=== PATIENT | male | born 1950 | race Caucasian/White ===

== ENCOUNTER 2017-11-20 14:10 | Observation (INO) | payer MEDICARE ==
[~2017-11-20] VITALS: Ht 152.4 cm; Wt 153.8 kg
[~2017-11-20 14:10] MED LIST changes: -ASPI81TA86 PO; -ATOR20TA22 PO; -LOSA100T67 PO
--- NOTE | 2017-11-20 14:14 | ER Report ---
History and Physical Time Seen By MD: 14:14 HPI/ROS CHIEF COMPLAINT: Dizziness, vomiting, diaphoresis HISTORY OF PRESENT ILLNESS: 66-year-old male patient presents to emergency room with complaint of dizziness, vomiting and diaphoresis. Patient states this started approximately 30 minutes prior to arrival. Patient states that he got to the bathroom and became very dizzy at that time. He states that he made it to the bathroom and when he got there he felt nauseous and vomited. He states that since then he's been feeling incredibly dizzy. He states that he also knows that he was diaphoretic. Patient states he is not taking any medication for this. He denies having any chest pain or any pain at this time. Patient denies having any history of heart disease. He states that he had a normal stress echo done in the not too distant past. REVIEW OF SYSTEMS: Respiratory: No cough, no dyspnea. Cardiovascular: No chest pain, no palpitations. Gastrointestinal: As noted above Musculoskeletal: No back pain. Allergies: Coded Allergies: Sulfa (Sulfonamide Antibiotics) (Verified Allergy, Severe, HIVES, 08/27/15) 1x reaction only to an antibiotic in past, unsure if he has ever taken any other sulfa products since. Home Meds Reported Medications Losartan Potassium (LOSARTAN POTASSIUM) 100 Mg Tablet, 100 MG PO QDAY 11/20/17 Atorvastatin Calcium (LIPITOR) 20 Mg Tablet, 1 TAB PO QDAY, TAB 11/20/17 Cholecalciferol (Vitamin D3) (VITAMIN D) 5,000 Unit Tablet, 5000 UNIT PO QDAY 08/27/15 Multivitamin (MULTI VITAMIN DAILY) 1 Each Tablet, 1 EACH PO 08/27/15 Summit-3 Fatty Acids/Fish Oil (OMEGA 3 1,000 MG SOFTGEL) 1 Each Capsule, 1 EACH PO QDAY, CAPSULE 08/27/15 Metformin Hcl (METFORMIN HCL) 500 Mg Tablet, 1 TAB PO BID, TAB 08/27/15 Allopurinol (Zyloprim) 300 Mg Tab, 300 MG PO QDAY 12/17/06 Hydrochlorothiazide (Hydrochlorothiazide) 25 Mg Tab, 25 MG PO QDAY 12/17/06 Verapamil Hcl (Isoptin Sr (Or Equiv)) 180 Mg Tabcr, 180 MG PO DAILY 12/17/06 Discontinued Reported Medications Lisinopril (LISINOPRIL) 20 Mg Tablet, 20 MG PO QDAY, TAB 2/1/16 Past Medical/Surgical History Patient has a past medical history of loss of sensory nerves below waist, hypertension, continuous oxygen use, neurogenic bladder, 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 Patient has surgical history of orbital reconstruction, back surgery, carpal tunnel release, appendectomy. Reviewed Nurses Notes: Yes Hx Smoking: Yes (CIGARS 2/WEEK) Smoking Status: Former Smoker Hx Alcohol Use: Yes Constitutional Vital Sign - Last 24 Hours 11/20/17 11/20/17 11/20/17 11/20/17 14:10 14:15 14:16 14:20 Temp 98.2 Pulse ??? 54 54 Resp 20 19 B/P (MAP) 150/80 150/80 (103) Pulse Ox 92 95 O2 Delivery Room Air 11/20/17 11/20/17 11/20/17 11/20/17 14:30 14:45 14:50 14:56 Pulse 53 68 Resp 12 15 B/P (MAP) 133/70 (91) 131/85 (100) Pulse Ox 96 95 O2 Flow Rate 3.0 11/20/17 11/20/17 11/20/17 11/20/17 15:00 15:01 15:15 15:21 Pulse 57 56 53 Resp 22 25 7 B/P (MAP) 130/83 (99) Pulse Ox 94 95 95 11/20/17 11/20/17 11/20/17 11/20/17 15:30 15:36 15:45 15:51 Pulse ? B/P (MAP) 125/75 (92) ???/??? (1665) 11/20/17 11/20/17 11/20/17 11/20/17 16:00 16:06 16:11 16:15 Pulse 52 54 Resp 21 21 B/P (MAP) 153/88 (109) 154/87 (109) Pulse Ox 96 96 11/20/17 11/20/17 11/20/17 11/20/17 16:30 16:41 16:45 16:56 Pulse 55 57 Resp 20 23 B/P (MAP) 157/88 (111) 151/94 (113) Pulse Ox 94 95 11/20/17 11/20/17 11/20/17 11/20/17 17:00 17:11 17:15 17:26 Pulse 49 52 Resp 24 23 B/P (MAP) 150/88 (108) 158/90 (112) Pulse Ox 95 11/20/17 11/20/17 11/20/17 11/20/17 17:30 17:35 17:45 17:50 Pulse 52 50 Resp 23 24 B/P (MAP) 147/88 (107) 156/89 (111) 11/20/17 11/20/17 11/20/17 11/20/17 18:00 18:05 18:15 18:20 Pulse 51 58 Resp 21 19 B/P (MAP) 154/87 (109) 172/92 (118) Pulse Ox 94 94 11/20/17 11/20/17 11/20/17 11/20/17 18:30 18:35 18:45 18:50 Pulse 55 50 Resp 12 20 B/P (MAP) 164/89 (114) 169/97 (121) Pulse Ox 90 11/20/17 11/20/17 11/20/17 11/20/17 19:00 19:05 19:15 19:20 Pulse 54 54 Resp 22 19 B/P (MAP) 160/87 (111) 157/88 (111) Pulse Ox 94 94 Physical Exam General Appearance: The patient is alert, has no immediate need for airway protection and no current signs of toxicity. Patient is diaphoretic. Eyes: Pupils equal and round no injection. Extra ocular movements intact. Respiratory: Chest is non tender, lungs are clear to auscultation. Cardiac: regular rate and rhythm Gastrointestinal: Abdomen is soft and non tender, no masses, bowel sounds normal. Musculoskeletal: Neck: Neck is supple and non tender. Extremities have full range of motion and are non tender. Skin: No rashes or lesions. Neuro: Patient is alert and oriented 4, patient had increased dizziness with head turned to right and left doing [place]-Hallpike maneuver. Dizziness was improved looking straight ahead. DIFFERENTIAL DIAGNOSIS: After history and physical exam differential diagnosis was considered for CT, vertigo, dehydration, labyrinthitis, gastroenteritis. Medical Decision Making Data Points Result Diagram: 11/20/17 1405 11/20/17 1405 Laboratory Hematology Test 11/20/17 14:05 11/20/17 17:33 11/20/17 19:45 Red Blood Count 5.02 M/uL (4.00-5.60) Mean Corpuscular Volume 87.0 fL (80.0-96.0) Mean Corpuscular Hemoglobin 29.4 pg (26.0-33.0) Mean Corpuscular Hemoglobin Concent 33.8 g/dL (32.0-36.0) Red Cell Distribution Width 14.1 % (11.5-14.5) Mean Platelet Volume 8.6 fL (7.2-11.1) Neutrophils (%) (Auto) 62.7 % (39.4-72.5) Lymphocytes (%) (Auto) 23.0 % (17.6-49.6) Monocytes (%) (Auto) 9.7 % (4.1-12.4) Eosinophils (%) (Auto) 3.7 % (0.4-6.7) Basophils (%) (Auto) 0.9 % (0.3-1.4) Nucleated RBC Relative Count (auto) 0.1 /100WBC Neutrophils # (Auto) 8.9 K/uL (2.0-7.4) Lymphocytes # (Auto) 3.2 K/uL (1.3-3.6) Monocytes # (Auto) 1.4 K/uL (0.3-1.0) Eosinophils # (Auto) 0.5 K/uL (0.0-0.5) Basophils # (Auto) 0.1 K/uL (0.0-0.1) Nucleated RBC Absolute Count (auto) 0.01 K/uL Sodium Level 135 mmol/L (137-145) Potassium Level 3.1 mmol/L (3.5-5.0) Chloride Level 93 mmol/L (98-107) Carbon Dioxide Level 27 mmol/L (22-30) Blood Urea Nitrogen 15 mg/dl (9-21) Creatinine 0.70 mg/dl (0.66-1.25) Glomerular Filtration Rate Calc > 60.0 Random Glucose 194 mg/dl (75-110) Calcium Level 9.8 mg/dl (8.4-10.2) Total Bilirubin 0.3 mg/dl (0.2-1.3) Aspartate Amino Transf (AST/SGOT) 38 U/L (0-35) Alanine Aminotransferase (ALT/SGPT) 53 U/L (0-56) Alkaline Phosphatase 59 U/L (0-126) Total Protein 7.5 gm/dl (6.3-8.2) Albumin 4.1 g/dl (3.5-5.0) Troponin I < 0.012 ng/ml Urine Color Yellow Urine Clarity Clear Urine pH 5.0 pH (4.8-9.5) Urine Specific [place] >1.060 Urine Protein Negative mg/dL (NEGATIVE) Urine Glucose (UA) Negative mg/dL (NEGATIVE) Urine Ketones Trace mg/dL (NEGATIVE) Urine Blood Negative (NEGATIVE) Urine Nitrite Negative (NEGATIVE) Urine Bilirubin Negative (NEGATIVE) Urine Urobilinogen Negative mg/dL (0.2-1.9) Urine Leukocyte Esterase Trace (NEGATIVE) Urine RBC <1 /HPF (0-2/HPF) Urine WBC 1 /HPF (0-5/HPF) Urine Squamous Epithelial Cells Many /LPF (</=FEW) Urine Bacteria Negative /HPF (NONE-FEW) Urine Mucus None /HPF (NONE-FEW) Chemistry Test 11/20/17 14:05 11/20/17 17:33 11/20/17 19:45 White Blood Count 14.1 k/uL (4.5-11.0) Red Blood Count 5.02 M/uL (4.00-5.60) Hemoglobin 14.7 g/dL (14.0-18.0) Hematocrit 43.7 % (42.0-52.0) Mean Corpuscular Volume 87.0 fL (80.0-96.0) Mean Corpuscular Hemoglobin 29.4 pg (26.0-33.0) Mean Corpuscular Hemoglobin Concent 33.8 g/dL (32.0-36.0) Red Cell Distribution Width 14.1 % (11.5-14.5) Platelet Count 291 K/uL (150-450) Mean Platelet Volume 8.6 fL (7.2-11.1) Neutrophils (%) (Auto) 62.7 % (39.4-72.5) Lymphocytes (%) (Auto) 23.0 % (17.6-49.6) Monocytes (%) (Auto) 9.7 % (4.1-12.4) Eosinophils (%) (Auto) 3.7 % (0.4-6.7) Basophils (%) (Auto) 0.9 % (0.3-1.4) Nucleated RBC Relative Count (auto) 0.1 /100WBC Neutrophils # (Auto) 8.9 K/uL (2.0-7.4) Lymphocytes # (Auto) 3.2 K/uL (1.3-3.6) Monocytes # (Auto) 1.4 K/uL (0.3-1.0) Eosinophils # (Auto) 0.5 K/uL (0.0-0.5) Basophils # (Auto) 0.1 K/uL (0.0-0.1) Nucleated RBC Absolute Count (auto) 0.01 K/uL Glomerular Filtration Rate Calc > 60.0 Calcium Level 9.8 mg/dl (8.4-10.2) Total Bilirubin 0.3 mg/dl (0.2-1.3) Aspartate Amino Transf (AST/SGOT) 38 U/L (0-35) Alanine Aminotransferase (ALT/SGPT) 53 U/L (0-56) Alkaline Phosphatase 59 U/L (0-126) Total Protein 7.5 gm/dl (6.3-8.2) Albumin 4.1 g/dl (3.5-5.0) Troponin I < 0.012 ng/ml Urine Color Yellow Urine Clarity Clear Urine pH 5.0 pH (4.8-9.5) Urine Specific [place] >1.060 Urine Protein Negative mg/dL (NEGATIVE) Urine Glucose (UA) Negative mg/dL (NEGATIVE) Urine Ketones Trace mg/dL (NEGATIVE) Urine Blood Negative (NEGATIVE) Urine Nitrite Negative (NEGATIVE) Urine Bilirubin Negative (NEGATIVE) Urine Urobilinogen Negative mg/dL (0.2-1.9) Urine Leukocyte Esterase Trace (NEGATIVE) Urine RBC <1 /HPF (0-2/HPF) Urine WBC 1 /HPF (0-5/HPF) Urine Squamous Epithelial Cells Many /LPF (</=FEW) Urine Bacteria Negative /HPF (NONE-FEW) Urine Mucus None /HPF (NONE-FEW) Urinalysis Test 11/20/17 19:45 Urine Color Yellow Urine Clarity Clear Urine pH 5.0 pH (4.8-9.5) Urine Specific [place] >1.060 Urine Protein Negative mg/dL (NEGATIVE) Urine Glucose (UA) Negative mg/dL (NEGATIVE) Urine Ketones Trace mg/dL (NEGATIVE) Urine Blood Negative (NEGATIVE) Urine Nitrite Negative (NEGATIVE) Urine Bilirubin Negative (NEGATIVE) Urine Urobilinogen Negative mg/dL (0.2-1.9) Urine Leukocyte Esterase Trace (NEGATIVE) Urine RBC <1 /HPF (0-2/HPF) Urine WBC 1 /HPF (0-5/HPF) Urine Squamous Epithelial Cells Many /LPF (</=FEW) Urine Bacteria Negative /HPF (NONE-FEW) Urine Mucus None /HPF (NONE-FEW) EKG/Imaging EKG Interpretation 12 lead EKG done at 1424: Rhythm: Sinus bradycardia with a ventricular rate of 57 bpm Walls: Left axis deviation QRS: Poor R-wave progression through V1 through V3 ST segments: normal 12 lead EKG done at 1514: Rhythm: Sinus bradycardia with when she rate of 52 bpm Walls: Left axis deviation QRS: Poor R-wave progression through V1 through V3 ST segments: normal EKG unchanged from previous EKG done at 1424 Imaging EXAMINATION: Portable chest radiograph single view at 2:20 PM HISTORY: Chest pain. COMPARISON: Chest CT from 04/24/2017. FINDINGS: A single portable AP view of the chest is obtained. Lines/tubes: None. Lungs/pleura: The lungs are hypoexpanded with bronchovascular crowding. There are streaky opacities at the lung bases. No evidence of pleural effusion or pneumothorax. Heart: Negative. Mediastinum: Negative. Bony structures/body wall: Negative. IMPRESSION: Hypoexpanded lungs with bibasilar subsegmental atelectasis. Report Dictated By: Claus Mars MD at 11/20/2017 3:29 PM Report E-Signed By: Claus Mars MD at 11/20/2017 3:33 PM ADDENDUM #1 The orbits show question of mild proptosis seen on both sides without focal abnormality. There is no radiopaque foreign body. Report Dictated By: Te Canales at 11/20/2017 7:19 PM Report E-Signed By: Te Canales at 11/20/2017 7:[address] Head without contrast Indication: Dizziness. Comparison: None available Technique: Axial CT images were obtained through the brain from the skull base to the vertex without administration of IV contrast. Reformatted coronal and sagittal images were also obtained. One of the following dose optimization techniques was utilized in the performance of this exam: automated exposure control; adjustment of the mA and/ or kV according to the patient's size; or use of an iterative reconstruction technique. Specific details can be referenced in the facility's radiology CT exam operational policy. Findings: No evidence of mass, mass effect, or midline shift. No acute intracranial hemorrhage or acute territorial infarction. No extra-axial fluid collection or hydrocephalus. Mild age-related cerebral atrophy. Mild periventricular white matter ischemic changes consistent small vessel disease. Yeager/white matter differentiation appears normal. Mild bilateral internal carotid artery calcifications. Bony structures show no fractures or lesions. Mild leftward deviation nasal septum. There is very mild mucosal thickening seen in the inferior aspect of both maxillary sinuses. The remaining sinuses and mastoids visualized are clear. IMPRESSION: 1. Senescent changes without acute abnormality. 2. Minimal bilateral maxillary sinus disease. Report Dictated By: Te Canales at 11/20/2017 4:36 PM Report E-Signed By: Te Canales at 11/20/2017 4:40 PM COMPUTED TOMOGRAPHY OF THE CHEST, ABDOMEN, AND PELVIS with CONTRAST DATE OF EXAM: 11/20/2017. INDICATION: . dizziness, wide mediastinum on chest xray. . TECHNIQUE: Contiguous axial CT images were obtained through the chest, abdomen, and pelvis after 125 cc [id number]. Coronal and sagittal reformatted images were submitted. COMPARISON: Chest radiograph of the same day. FINDINGS: Thyroid: The thyroid is incompletely imaged. Thoracic inlet: No thoracic inlet adenopathy. Heart and great vessels: Heart size is normal. Coronary atherosclerosis is prominent in the LAD but blurred by motion. There is also RCA atherosclerosis. A moderate volume of fat surrounds the heart. Mediastinum and shakeel: No adenopathy. Lungs and pleura: The lungs are blurred by motion. There is no effusion, consolidation, or pneumothorax. Scattered atelectasis. Breast and axilla: Breast tissue is incompletely imaged. Liver and hepatic vasculature: Imaging is degraded by body habitus. There is no apparent focal liver lesion. No ascites. Gallbladder and bile ducts: Normal Spleen: Normal Pancreas: Normal Adrenals: Normal Kidneys, ureters and bladder: Simple appearing right renal cyst. No hydronephrosis or collecting system obstruction. Normal-appearing bladder. Retroperitoneum and aorta: Scattered aortic atherosclerosis. GI tract, mesentery and peritoneum: No bowel obstruction. No free fluid or free air. No findings of diverticulitis. Prostate: Unremarkable. Bones and soft tissues: Large osteophytes at multiple thoracolumbar levels. There has been posterior decompression at L4 and L3 with excision of the spinous processes at both levels and laminectomy at L4. IMPRESSION: 1. The apparent widening of the mediastinum on prior radiographs is likely due to fat surrounding the heart, the technique, and hypoinflation. Heart size is normal. Normal course and caliber of the great vessels. 2. Chronic findings as above. One of the following dose optimization techniques was utilized in the performance of this exam: Automated exposure control; adjustment of the mA and/ or kV according to the patient's size; or use of an iterative reconstruction technique. Specific details can be referenced in the facility's radiology CT exam operational policy. Report Dictated By: Glory Novak MD at 11/20/2017 4:53 PM Report E-Signed By: Glory Novak MD at 11/20/2017 5:13 PM ED Course/Re-evaluation ED Course Patient was admitted to exam room, history and physical were obtained. Differential diagnoses were considered. On examination patient is diaphoretic, heart is regular, patient is nauseated and vomited 1. Patient received 4 mg of Zofran in route to the emergency room, he also received a dose of Zofran here in the emergency room. An IV was started, CBC, CMP, troponin, EKG were done. EKG showed a sinus bradycardia with poor R-wave progression in leads V1 through V3. CBC showed a white count of 14,000, there was no left shift. I believe this is likely secondary to demargination from the vomiting. A CMP showed a low potassium of 3.1, low sodium of 135. A chest x-ray was done which appeared to show a widened mediastinum, a CT scan of head was done. As the patient was wheeled down for the CT scan of the head as well as noticed the widened mediastinum, I ordered a CT of the chest abdomen pelvis. As a side note the radiologist did read the chest x-ray as no acute cardiac processes although there is poor expiratory effort. The CT scan of the head, chest abdomen pelvis showed no acute findings. I did get a repeat troponin. That was also negative. At that time I discussed the case with Dr. Grissom, hospitalist. He did come down and evaluate the patient. He requested that an MRI be done. An MRI was ordered and patient was taken over to have it, however he was too large to fit into the MRI tube. I discussed this with Dr. Grissom, we discussed about transferring so he can get an MRI. Dr. Forrest didn't feel that was necessary at this time but stated that we will go ahead and admit the patient and treat the symptoms. I discussed this with patient and his and they verbalized understanding and agreement with plan. Decision to Disposition Date: Nov 20, 2017 Decision to Disposition Time: 20:08 Depart Departure Latest Vital Signs Vital Signs Date Time Temp Pulse Resp B/P (MAP) Pulse Ox O2 Delivery O2 Flow Rate FiO2 11/20/17 19:20 54 19 94 11/20/17 19:15 157/88 (111) 11/20/17 14:56 3.0 11/20/17 14:15 98.2 Room Air Impression: Primary Impression: Dizziness Additional Impressions: Vomiting Diabetes Condition: Condition Unchanged Disposition: Admitted from ER Referrals: NATHAN MITCHELL (PCP) Problem Qualifiers Additional Impressions: Vomiting Vomiting type: unspecified Vomiting Intractability: non-intractable Nausea presence: with nausea Qualified Codes: R11.2 - Nausea with vomiting, unspecified Diabetes Diabetes mellitus type: type 2 Diabetes mellitus terminal supervisor insulin use: unspecified halfway insulin use status Diabetes mellitus complication status : without complication Qualified Codes: E11.9 - Type 2 diabetes mellitus without complications JOSE FERRARO Nov 20, 2017 14:14
[2017-11-20] MEDS ORDERED: ASPIRIN 81 MG CHEW PO ONE (14:20)
[2017-11-20] MEDS ORDERED: NS(*) 0.9% 1000 ML BAG 1,000 ML IV ONE (14:20)
[2017-11-20] MEDS ORDERED: ONDANSETRON 4 MG/2 ML VIAL IVP ONE (14:25)
[2017-11-20 14:30] LABS: PLATELET COUNT, AUTOMATED 291 K/uL (150-450)
--- NOTE | 2017-11-20 14:32 | EKG ---
FACILITY: [facility] PATIENT NAME: GONZALO PALOMO : [id number] MR: [id number] V: [id number] EXAM DATE: ORDERING PHYSICIAN: JOSE FERRARO TECHNOLOGIST: CARSON Test Reason : BRADYCARDIA, DIAPHORESIS Blood Pressure : / mmHG Vent. Rate : 057 BPM Atrial Rate : 057 BPM P-R Int : 226 ms QRS Dur : 108 ms QT Int : 436 ms P-R-T Axes : 041 -50 014 degrees QTc Int : 424 ms Poor data quality, interpretation may be adversely affected Sinus bradycardia with 1st degree AV block Left anterior fascicular block Anteroseptal infarct , age undetermined Diffuse, non-specific T flattening No previous ECGs available Confirmed by BLU JONES ([id number]) on 11/20/2017 7:07:59 PM Referred By: JASMINE Confirmed By:BLU JONES
[2017-11-20] MEDS ORDERED: DIAZEPAM 50 MG/10 ML MDV IVP ONE (14:35)
[2017-11-20] MEDS ORDERED: ATOR20TA22 PO (15:01)
[2017-11-20] MEDS ORDERED: LOSA100T67 PO (15:01)
[2017-11-20] MEDS ORDERED: PROMETHAZINE 25 MG/ML 1 ML AMP IVP ONE ×2 (15:15→16:20)
--- NOTE | 2017-11-20 15:24 | EKG ---
FACILITY: [facility] PATIENT NAME: GONZALO PALOMO : [id number] MR: [id number] V: [id number] EXAM DATE: ORDERING PHYSICIAN: JOSE FERRARO TECHNOLOGIST: CARSON Test Reason : SYNCOPE Blood Pressure : / mmHG Vent. Rate : 052 BPM Atrial Rate : 052 BPM P-R Int : 238 ms QRS Dur : 104 ms QT Int : 464 ms P-R-T Axes : 015 -43 020 degrees QTc Int : 431 ms Sinus bradycardia with 1st degree AV block Left axis deviation Anteroseptal infarct (cited on or before 20-NOV-2017) Diffuse, non-specific T flattening When compared with ECG of previous Unchanged Confirmed by BLU JONES ([id number]) on 11/20/2017 7:09:18 PM Referred By: JASMINE Confirmed By:BLU JONES
--- NOTE | 2017-11-20 15:38 | RADIOLOGY IMAGING REPORT ---
FACILITY: [facility] [place] PATIENT NAME: William Hernandez : 1950 MR: [id number] V: [id number] EXAM DATE: ORDERING PHYSICIAN: JOSE FERRARO TECHNOLOGIST: Location: [facility] [place] Patient: William Hernandez : 1950 Visit/Account:[id number] Date of Sevice: 11/20/2017 EXAMINATION: Portable chest radiograph single view at 2:20 PM HISTORY: Chest pain. COMPARISON: Chest CT from 04/24/2017. FINDINGS: A single portable AP view of the chest is obtained. Lines/tubes: None. Lungs/pleura: The lungs are hypoexpanded with bronchovascular crowding. There are streaky opacities at the lung bases. No evidence of pleural effusion or pneumothorax. Heart: Negative. Mediastinum: Negative. Bony structures/body wall: Negative. IMPRESSION: Hypoexpanded lungs with bibasilar subsegmental atelectasis. Report Dictated By: Claus Mars MD at 11/20/2017 3:29 PM Report E-Signed By: Claus Mars MD at 11/20/2017 3:33 PM WSN:[id number]
[2017-11-20] MEDS ORDERED: IOPAMIDOL 76% 150 ML INFUS BTL 150 ML ONE (15:47)
--- NOTE | 2017-11-20 16:45 | RADIOLOGY IMAGING REPORT ---
FACILITY: [facility] PATIENT NAME: William Hernandez : 1950 MR: [id number] V: [id number] EXAM DATE: ORDERING PHYSICIAN: JOSE FERRARO TECHNOLOGIST: Location: [facility] Patient: William Hernandez : 1950 Visit/Account:[id number] Date of Sevice: 11/20/2017 ADDENDUM #1 The orbits show question of mild proptosis seen on both sides without focal abnormality. There is no radiopaque foreign body. Report Dictated By: Te Canales at 11/20/2017 7:19 PM Report E-Signed By: Te Canales at 11/20/2017 7:[address] Head without contrast Indication: Dizziness. Comparison: None available Technique: Axial CT images were obtained through the brain from the skull base to the vertex without administration of IV contrast. Reformatted coronal and sagittal images were also obtained. One of the following dose optimization techniques was utilized in the performance of this exam: autom ated exposure control; adjustment of the mA and/or kV according to the patient's size; or use of an i terative reconstruction technique. Specific details can be referenced in the facility's radiology CT exam operational policy. Findings: No evidence of mass, mass effect, or midline shift. No acute intracranial hemorrhage or acute territorial infarction. No extra-axial fluid collection or hydrocephalus. Mild age-related cerebral atrophy. Mild periventric ular white matter ischemic changes consistent small vessel disease. Yeager/white matter differentiation appears normal. Mild bilateral internal carotid artery calcifications. Bony structures show no fractures or lesions. Mild leftward deviation nasal septum. There is very mild mucosal thickening seen in the inferior aspect of both maxillary sinuses. The liv ining sinuses and mastoids visualized are clear. IMPRESSION: 1. Senescent changes without acute abnormality. 2. Minimal bilateral maxillary sinus disease. Report Dictated By: Te Canales at 11/20/2017 4:36 PM Report E-Signed By: Te Canales at 11/20/2017 4:40 PM WSN:[id number]
--- NOTE | 2017-11-20 17:17 | RADIOLOGY IMAGING REPORT ---
FACILITY: [facility] PATIENT NAME: William Hernandez : 1950 MR: [id number] V: [id number] EXAM DATE: [id number] ORDERING PHYSICIAN: JOSE FERRARO TECHNOLOGIST: Location: [facility] Patient: William Hernandez : 1950 Visit/Account:[id number] Date of Sevice: 11/20/2017 COMPUTED TOMOGRAPHY OF THE CHEST, ABDOMEN, AND PELVIS with CONTRAST DATE OF EXAM: 11/20/2017. INDICATION: . dizziness, wide mediastinum on chest xray. . TECHNIQUE: Contiguous axial CT images were obtained through the chest, abdomen, and pelvis after 125 cc Isovue-370. Coronal and sagittal reformatted images were submitted. COMPARISON: Chest radiograph of the same day. FINDINGS: Thyroid: The thyroid is incompletely imaged. Thoracic inlet: No thoracic inlet adenopathy. Heart and great vessels: Heart size is normal. Coronary atherosclerosis is prominent in the LAD but blurred by motion. There is also RCA atherosclerosis. A moderate volume of fat surrounds the heart. Mediastinum and shakeel: No adenopathy. Lungs and pleura: The lungs are blurred by motion. There is no effusion, consolidation, or pneumotho rax. Scattered atelectasis. Breast and axilla: Breast tissue is incompletely imaged. Liver and hepatic vasculature: Imaging is degraded by body habitus. There is no apparent focal liver lesion. No ascites. Gallbladder and bile ducts: Normal Spleen: Normal Pancreas: Normal Adrenals: Normal Kidneys, ureters and bladder: Simple appearing right renal cyst. No hydronephrosis or collecting sys tem obstruction. Normal-appearing bladder. Retroperitoneum and aorta: Scattered aortic atherosclerosis. GI tract, mesentery and peritoneum: No bowel obstruction. No free fluid or free air. No findings of d iverticulitis. Prostate: Unremarkable. Bones and soft tissues: Large osteophytes at multiple thoracolumbar levels. There has been posterior decompression at L4 and L3 with excision of the spinous processes at both levels and laminectomy at L 4. IMPRESSION: 1. The apparent widening of the mediastinum on prior radiographs is likely due to fat surrounding the heart, the technique, and hypoinflation. Heart size is normal. Normal course and caliber of the grea t vessels. 2. Chronic findings as above. One of the following dose optimization techniques was utilized in the performance of this exam: Autom ated exposure control; adjustment of the mA and/or kV according to the patient's size; or use of an i terative reconstruction technique. Specific details can be referenced in the facility's radiology C T exam operational policy. Report Dictated By: Glory Novak MD at 11/20/2017 4:53 PM Report E-Signed By: Glory Novak MD at 11/20/2017 5:13 PM WSN:[id number]
[2017-11-20] MEDS ORDERED: METOCLOPRAMIDE 10 MG/2 ML SDV IVP ONE (19:30)
[2017-11-20] MEDS ORDERED: PROMETHAZINE 25 MG/ML 1 ML AMP IVP PRN ×2 (20:15→20:35)
[2017-11-20 20:32] VITALS: BP 142/85
[2017-11-20] MEDS ORDERED: ONDANSETRON 4 MG/2 ML VIAL IVP PRN (20:35)
--- NOTE | 2017-11-20 20:43 | RADIOLOGY IMAGING REPORT ---
FACILITY: [facility] PATIENT NAME: William Hernandez : 1950 MR: [id number] V: [id number] EXAM DATE: ORDERING PHYSICIAN: JOSE FERRARO TECHNOLOGIST: Location: [facility] Patient: William Hernandez : 1950 Visit/Account:[id number] Date of Sevice: 11/20/2017 BRAIN W/O CONTRAST HISTORY: Dizziness. FINDINGS: Examination could not be performed as patient did not fit into the MRI scanner. Report Dictated By: Carolee Varela at 11/20/2017 8:37 PM Report E-Signed By: Carolee Varela at 11/20/2017 8:39 PM WSN:[id number]
--- NOTE | 2017-11-20 20:53 | History & Physical ---
History of Present Illness History of Present Illness 66yo male with T2DM, HTN, and hyperlipidemia who came to the ER for dizziness. He was in his normal state of health until about 1:45pm. He had been up walking for about 2 minutes, making his way to the bathroom, when he suddenly developed dizziness. He denies vertigo or tunnel vision symptoms. It felt like he "was moving". He became very sweaty. Moving his head makes it worse. He hasn't had headache, fevers, chills, cp, sob, facial droop, new focal weakness. He did have a loose stool right after the dizziness started. In the ER, he received ASA, Zofran, Valium, Reglan, and Phenergan x2. 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 (6) History of back surgery (7) History of appendectomy Home Meds Reported Medications Losartan Potassium (LOSARTAN POTASSIUM) 100 Mg Tablet, 100 MG PO QDAY 11/20/17 Atorvastatin Calcium (LIPITOR) 20 Mg Tablet, 1 TAB PO QDAY, TAB 11/20/17 Cholecalciferol (Vitamin D3) (VITAMIN D) 5,000 Unit Tablet, 5000 UNIT PO QDAY 08/27/15 Multivitamin (MULTI VITAMIN DAILY) 1 Each Tablet, 1 EACH PO 08/27/15 Dexter-3 Fatty Acids/Fish Oil (OMEGA 3 1,000 MG SOFTGEL) 1 Each Capsule, 1 EACH PO QDAY, CAPSULE 08/27/15 Metformin Hcl (METFORMIN HCL) 500 Mg Tablet, 1 TAB PO BID, TAB 08/27/15 Allopurinol (Zyloprim) 300 Mg Tab, 300 MG PO QDAY 12/17/06 Hydrochlorothiazide (Hydrochlorothiazide) 25 Mg Tab, 25 MG PO QDAY 12/17/06 Verapamil Hcl (Isoptin Sr (Or Equiv)) 180 Mg Tabcr, 180 MG PO DAILY 12/17/06 Discontinued Reported Medications Lisinopril (LISINOPRIL) 20 Mg Tablet, 20 MG PO QDAY, TAB 08/27/15 Allergies: Coded Allergies: Sulfa (Sulfonamide Antibiotics) (Verified Allergy, Severe, HIVES, 08/27/15) 1x reaction only to an antibiotic in past, unsure if he has ever taken any other sulfa products since. Other Social/Family Hx no tobacco. He lives with his . He drinks 3-4 drinks a few times a week. Hx Smoking: Yes (CIGARS 2/WEEK) Smoking Status: Former Smoker Caffeine Intake: Coffee, Tea, Soda Caffeine/Cups Per Day: 36 oz per day Hx Alcohol Use: Yes (2-3X WEEK) Hx Substance Use Disorder: No Review of Systems All Systems Reviewed/Normal: Yes, Except as Noted Exam Vital Signs Vital Signs Date Time Temp Pulse Resp B/P (MAP) Pulse Ox O2 Delivery O2 Flow Rate FiO2 11/20/17 19:20 54 19 94 11/20/17 19:15 157/88 (111) 11/20/17 14:56 3.0 11/20/17 14:15 98.2 Room Air General Appearance: No Acute Distress, Other (breathing comfortably. ) Neuro: No Gross deficits (CN 2-12 intact. Normal strength in UE bilaterally. He is able to flex his hips against light resistance bilaterally. He chroncially cannot dorsiflex/plantar flex) Eyes: PERRLA ENT: Moist Mucous Membranes, Posterior Pharynx Clear Cardiovascular: Regular Rate and Rhythm (2/6 systolic murmur across the precordium) Respiratory: Clear to Auscultation GI: Abd Soft and Non-Tender Extremities: Warm, Perfused Integumentary: No Jaundice, No Cyanosis Medical Decision Making Data Points Result Diagram: 11/20/17140411/20/171404 Item Value Date Time Urine Leukocyte Esterase Trace H 11/20/171944 Urine RBC <1 /HPF 11/20/171944 Urine WBC 1 /HPF 11/20/171944 Urine Squamous Epithelial Cells Many /LPF H 11/20/171944 Urine Bacteria Negative /HPF 11/20/171944 Urine Ketones Trace mg/dL 11/20/171944 Neutrophils (%) (Auto) 62.7 % 11/20/171404 Lymphocytes (%) (Auto) 23.0 % 11/20/171404 Monocytes (%) (Auto) 9.7 % 11/20/171404 Eosinophils (%) (Auto) 3.7 % 11/20/171404 Basophils (%) (Auto) 0.9 % 4/27/18 1405 Troponin I < 0.012 ng/ml 11/20/17 1733 Troponin I < 0.012 ng/ml 11/20/17 1405 Total Bilirubin 0.3 mg/dl 11/20/17 1405 Aspartate Amino Transf (AST/SGOT) 38 U/L H 11/20/17 1405 Alanine Aminotransferase (ALT/SGPT) 53 U/L 11/20/17 1405 Alkaline Phosphatase 59 U/L 11/20/17 1405 EKG / Imaging EKG Interpretation Vent. Rate : 052 BPM Atrial Rate : 052 BPM P-R Int : 238 ms QRS Dur : 104 ms QT Int : 464 ms P-R-T Axes : 015 -43 020 degrees QTc Int : 431 ms Sinus bradycardia with 1st degree AV block Left axis deviation Anteroseptal infarct (cited on or before 20-NOV-2017) Diffuse, non-specific T flattening When compared with ECG of previous Unchanged Confirmed by BLU JONES ([id number]) on 11/20/2017 7:09:18 PM Imaging Chest/Abd/Pelvis CT - 1. The apparent widening of the mediastinum on prior radiographs is likely due to fat surrounding the heart, the technique, and hypoinflation. Heart size is normal. Normal course and caliber of the great vessels. 2. Chronic findings as above. Head CT - 1. Senescent changes without acute abnormality. 2. Minimal bilateral maxillary sinus disease. CXR - Hypoexpanded lungs with bibasilar subsegmental atelectasis. Assessment and Plan Problems: (1) Dizziness Status: Acute Assessment & Plan: He presented with sudden onset of the sensation of moving and nausea at about 1:45pm. The symptoms have persisted and are exacerbated by moving his head. He was unable to fit in the MRI. Hallpike test creates symptoms on both sides and reportedly there was no nystagmus. He is more than 4.5 hours out from the onset of the symptoms, so will watch him in the hospital , check carotid Dopplers and an echo. He has received ASA and will continue. If his symptoms, are not improving, then he might need to get an MRI at another facility and/or be under the care of a Neurologist. (2) Vomiting Status: Acute Assessment & Plan: Secondary to above. Will hydrate and give Zofran/Phenergan prn. (3) T2DM (type 2 diabetes mellitus) Status: Chronic Assessment & Plan: Hold metformin secondary to contrast. AC and HS glucose with SSI level 2 to cover. (4) HTN (hypertension) Status: Chronic Assessment & Plan: Continue HCTZ, Losartan, and Verapamil with parameters. (5) Hyperlipemia Status: Chronic Assessment & Plan: Continue chronic atorvastatin. 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 Copies to: [employer] Venous Thromboembolism Antithrombotics Is Pt On Any Antithrombotics?: No Exam Sepsis Risk: No Definite Risk Problem Qualifiers (1) Vomiting: Vomiting type: unspecified Vomiting Intractability: non-intractable Nausea presence: with nausea Qualified Codes: R11.2 - Nausea with vomiting, unspecified BLU JONES MD Nov 20, 2017 20:53
[2017-11-20] MEDS ORDERED: LOSARTAN POTASSIUM 50 MG TAB PO SCH (21:00)
[2017-11-20] MEDS ORDERED: VERAPAMIL HCL SR 180 MG TABCR PO SCH (21:00)
[2017-11-20] MEDS ORDERED: ALLOPURINOL 300 MG TAB PO SCH (21:00)
[2017-11-20] MEDS ORDERED: HYDROCHLOROTHIAZIDE 25 MG TAB PO SCH (21:00)
[2017-11-20] MEDS ORDERED: metFORMIN HCL 500 MG TAB PO SCH (21:00)
[2017-11-20] MEDS ORDERED: ATORVASTATIN 10 MG TAB PO SCH (21:00)
[2017-11-20 22:44] VITALS: BP 141/80
[2017-11-21] MEDS: NS(*) 0.9% 1000 ML BAG 1,000 ML IV PRN ×2 (03:09→12:22)
[2017-11-21 03:12] VITALS: BP 146/76
[2017-11-21 06:46] VITALS: BP 133/73
[2017-11-21 07:07] LABS: PLATELET COUNT, AUTOMATED 214 K/uL (150-450)
[2017-11-21] MEDS: INSULIN HUM LISPRO 100 UN/ML 3 ML VIAL SUBQ PRN ×2 (07:59→14:35)
[2017-11-21] MEDS ORDERED: ENOXAPARIN 40 MG/0.4ML SYR SC SCH (09:00)
--- NOTE | 2017-11-21 10:40 | Hospitalist Progress Note ---
Subjective Progress Notes Subjective He reports doing well this AM. No further dizziness. No N/V. He has been up to bathroom without problems. Physical Exam Vital Signs Date Time Temp Pulse Resp B/P (MAP) Pulse Ox O2 Delivery O2 Flow Rate FiO2 11/21/17 09:22 96 Nasal Cannula 3.0 11/21/17 06:46 98.5 63 20 133/73 (93) General Appearance: Alert, Awake Neuro: Other (weakness both lower extremities reported to be unchanged per patient) Eyes: PERRLA, Other (no nystagmus noted) ENT: Oropharynx Clear Neck: No Masses, Other (short thick) Cardiovascular: Regular Rate and Rhythm (systolic murmur) Respiratory: Clear to Auscultation GI: Soft and Non-Tender Extremities: Warm, Perfused Result Diagram: 11/21/1760011/21/17600 Assessment and Plan Problems: (1) Dizziness Status: Acute Assessment & Plan: He presented with sudden onset of the sensation of moving and nausea. The symptoms persisted and were exacerbated by moving his head. CT scan was unremarkable (unable to do MRI due to his size). It sounds as if he probably has a peripheral source. His symptoms have now resolved. Will advance his diet. Will have him mobilize. If he does well, he should be bale to discharge soon with close follow up as an outpatient. (2) Vomiting Status: Acute Assessment & Plan: Secondary to above. Now resolved. Will advance diet. (3) T2DM (type 2 diabetes mellitus) Status: Chronic Assessment & Plan: Holding metformin secondary to IV contrast. SSI to cover. (4) HTN (hypertension) Status: Chronic Assessment & Plan: Continue HCTZ, Losartan, and Verapamil with parameters. (5) Hyperlipemia Status: Chronic Assessment & Plan: Continue chronic atorvastatin. 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 Exam Sepsis Risk: No Definite Risk Problem Qualifiers (1) Vomiting: Vomiting type: unspecified Vomiting Intractability: non-intractable Nausea presence: with nausea Qualified Codes: R11.2 - Nausea with vomiting, unspecified EWA RUIZ MD Nov 21, 2017 10:40
[2017-11-21 10:50] VITALS: BP 150/76
[2017-11-21 12:10] VITALS: Ht 152.4 cm; Wt 153.8 kg
[2017-11-21 14:37] VITALS: BP 140/78
[2017-11-21] MEDS ORDERED: ASPI81TA86 PO (14:59)
--- NOTE | 2017-11-21 15:06 | Hospitalist Depart ---
Discharge Summary Reason for Hosp/Final Diag: (1) Dizziness Status: Acute Hospital Course & Plan: He presented with sudden onset of the sensation of moving and nausea. The symptoms persisted and were exacerbated by moving his head. CT scan was unremarkable (unable to do MRI due to his size). It sounds as if he probably has a peripheral source (possible vestibular neuronitis). His symptoms have now resolved. He was able to eat and drink without problems. He was able to mobilize without difficulties. He will have close follow up with Deanne RAE as an outpatient. (2) Vomiting Status: Acute Hospital Course & Plan: Secondary to above. Now resolved. (3) T2DM (type 2 diabetes mellitus) Status: Chronic Hospital Course & Plan: Holding metformin secondary to IV contrast. He will resume his metformin on Thursday11/23/17. (4) HTN (hypertension) Status: Chronic Hospital Course & Plan: Continue HCTZ, Losartan, and Verapamil. He will follow up with his PCP regarding ongoing management. (5) Hyperlipemia Status: Chronic Hospital Course & Plan: Continue atorvastatin. 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 Departure Weight (Pounds): 339 Result Diagram: 11/21/17 0611/21/17 06 Item Value Date Time White Blood Count 14.1 k/uL H 11/20/17 1405 Hemoglobin 14.7 g/dL 11/20/17 1405 Hematocrit 43.7 % 11/20/17 1405 Platelet Count 291 K/uL 11/20/17 1405 Sodium Level 135 mmol/L L 11/20/17 1405 Potassium Level 3.1 mmol/L L 11/20/17 1405 Chloride Level 93 mmol/L L 11/20/17 1405 Carbon Dioxide Level 27 mmol/L 11/20/17 1405 Blood Urea Nitrogen 15 mg/dl 11/20/17 1405 Creatinine 0.70 mg/dl 11/20/17 1405 Glomerular Filtration Rate Calc > 60.0 11/20/17 1405 Random Glucose 194 mg/dl H 11/20/17 1405 Calcium Level 9.8 mg/dl 11/20/17 1405 Total Bilirubin 0.3 mg/dl 11/20/17 1405 Aspartate Amino Transf (AST/SGOT) 38 U/L H 11/20/17 1405 Alanine Aminotransferase (ALT/SGPT) 53 U/L 11/20/17 1405 Alkaline Phosphatase 59 U/L 11/20/17 1405 Troponin I < 0.012 ng/ml 11/20/17 1405 Total Protein 7.5 gm/dl 11/20/17 1405 Albumin 4.1 g/dl 11/20/17 1405 Troponin I < 0.012 ng/ml 11/20/17 1733 Albumin 3.4 g/dl L 11/21/17 0601 Total Protein 6.3 gm/dl 11/21/17 0601 Alkaline Phosphatase 47 U/L 11/21/17 0601 Alanine Aminotransferase (ALT/SGPT) 48 U/L 11/21/17 0601 Aspartate Amino Transf (AST/SGOT) 25 U/L 11/21/17 0601 Total Bilirubin 0.4 mg/dl 11/21/17 06 Calcium Level 9.5 mg/dl 11/21/17600 Urine Color Yellow 11/20/171944 Urine Clarity Clear 11/20/171944 Urine pH 5.0 pH 11/20/171944 Urine Specific [place] >1.060 11/20/171944 Urine Protein Negative mg/dL 11/20/171944 Urine Glucose (UA) Negative mg/dL 11/20/171944 Urine Ketones Trace mg/dL 11/20/171944 Urine Blood Negative 11/20/171944 Urine Nitrite Negative 11/20/171944 Urine Bilirubin Negative 11/20/171944 Urine Urobilinogen Negative mg/dL 11/20/171944 Urine Leukocyte Esterase Trace H 11/20/171944 Urine RBC <1 /HPF 11/20/171944 Urine WBC 1 /HPF 11/20/171944 Urine Squamous Epithelial Cells Many /LPF H 11/20/171944 Urine Bacteria Negative /HPF 11/20/171944 Urine Mucus None /HPF 11/20/171944 Imaging PATIENT NAME: William Hernandez : 1950 MR: [id number] V: [id number] EXAM DATE: ORDERING PHYSICIAN: JOSE FERRARO TECHNOLOGIST: Location: [facility] [place] Patient: William Hernandez : 1950 Visit/Account:[id number] Date of Sevice: 11/20/2017 ADDENDUM #1 The orbits show question of mild proptosis seen on both sides without focal abnormality. There is no radiopaque foreign body. Report Dictated By: Te Canales at 11/20/2017 7:19 PM Report E-Signed By: Te Canales at 11/20/2017 7:[address] Head without contrast Indication: Dizziness. Comparison: None available Technique: Axial CT images were obtained through the brain from the skull base to the vertex without administration of IV contrast. Reformatted coronal and sagittal images were also obtained. One of the following dose optimization techniques was utilized in the performance of this exam: automated exposure control; adjustment of the mA and/ or kV according to the patient's size; or use of an iterative reconstruction technique. Specific details can be referenced in the facility's radiology CT exam operational policy. Findings: No evidence of mass, mass effect, or midline shift. No acute intracranial hemorrhage or acute territorial infarction. No extra-axial fluid collection or hydrocephalus. Mild age-related cerebral atrophy. Mild periventricular white matter ischemic changes consistent small vessel disease. Yeager/white matter differentiation appears normal. Mild bilateral internal carotid artery calcifications. Bony structures show no fractures or lesions. Mild leftward deviation nasal septum. There is very mild mucosal thickening seen in the inferior aspect of both maxillary sinuses. The remaining sinuses and mastoids visualized are clear. IMPRESSION: 1. Senescent changes without acute abnormality. 2. Minimal bilateral maxillary sinus disease. Report Dictated By: Te Canales at 11/20/2017 4:36 PM Report E-Signed By: Te Canales at 11/20/2017 4:40 PM WSN:[id number] PATIENT NAME: William Hernandez : 1950 MR: [id number] V: [id number] EXAM DATE: [id number] ORDERING PHYSICIAN: JOSE FERRARO TECHNOLOGIST: Location: [facility] [place] Patient: William Hernandez : 1950 Visit/Account:[id number] Date of Sevice: 11/20/2017 COMPUTED TOMOGRAPHY OF THE CHEST, ABDOMEN, AND PELVIS with CONTRAST DATE OF EXAM: 11/20/2017. INDICATION: . dizziness, wide mediastinum on chest xray. . TECHNIQUE: Contiguous axial CT images were obtained through the chest, abdomen, and pelvis after 125 cc Isovue-370. Coronal and sagittal reformatted images were submitted. COMPARISON: Chest radiograph of the same day. FINDINGS: Thyroid: The thyroid is incompletely imaged. Thoracic inlet: No thoracic inlet adenopathy. Heart and great vessels: Heart size is normal. Coronary atherosclerosis is prominent in the LAD but blurred by motion. There is also RCA atherosclerosis. A moderate volume of fat surrounds the heart. Mediastinum and shakeel: No adenopathy. Lungs and pleura: The lungs are blurred by motion. There is no effusion, consolidation, or pneumothorax. Scattered atelectasis. Breast and axilla: Breast tissue is incompletely imaged. Liver and hepatic vasculature: Imaging is degraded by body habitus. There is no apparent focal liver lesion. No ascites. Gallbladder and bile ducts: Normal Spleen: Normal Pancreas: Normal Adrenals: Normal Kidneys, ureters and bladder: Simple appearing right renal cyst. No hydronephrosis or collecting system obstruction. Normal-appearing bladder. Retroperitoneum and aorta: Scattered aortic atherosclerosis. GI tract, mesentery and peritoneum: No bowel obstruction. No free fluid or free air. No findings of diverticulitis. Prostate: Unremarkable. Bones and soft tissues: Large osteophytes at multiple thoracolumbar levels. There has been posterior decompression at L4 and L3 with excision of the spinous processes at both levels and laminectomy at L4. IMPRESSION: 1. The apparent widening of the mediastinum on prior radiographs is likely due to fat surrounding the heart, the technique, and hypoinflation. Heart size is normal. Normal course and caliber of the great vessels. 2. Chronic findings as above. One of the following dose optimization techniques was utilized in the performance of this exam: Automated exposure control; adjustment of the mA and/ or kV according to the patient's size; or use of an iterative reconstruction technique. Specific details can be referenced in the facility's radiology CT exam operational policy. Report Dictated By: Glory Novak MD at 11/20/2017 4:53 PM Report E-Signed By: Glory Novak MD at 11/20/2017 5:13 PM WSN:[id number] Condition: Improved Discharge: Home Follow-Up Labs: Finger Sticks Time Spent: > 30 min Discharge Instructions Home Meds Active Scripts Aspirin (ASPIRIN EC) 81 Mg Tablet.dr, 81 MG PO QDAY for 30 Days, TAB Prov:EWA RUIZ MD 11/21/17 Reported Medications Losartan Potassium (LOSARTAN POTASSIUM) 100 Mg Tablet, 100 MG PO QDAY 11/20/17 Atorvastatin Calcium (LIPITOR) 20 Mg Tablet, 1 TAB PO QDAY, TAB 11/20/17 Cholecalciferol (Vitamin D3) (VITAMIN D) 5,000 Unit Tablet, 5000 UNIT PO QDAY 08/27/15 Multivitamin (MULTI VITAMIN DAILY) 1 Each Tablet, 1 EACH PO 08/27/15 Sibley-3 Fatty Acids/Fish Oil (OMEGA 3 1,000 MG SOFTGEL) 1 Each Capsule, 1 EACH PO QDAY, CAPSULE 08/27/15 Metformin Hcl (METFORMIN HCL) 500 Mg Tablet, 1 TAB PO BID, TAB 08/27/15 Allopurinol (Zyloprim) 300 Mg Tab, 300 MG PO QDAY 12/17/06 Hydrochlorothiazide (Hydrochlorothiazide) 25 Mg Tab, 25 MG PO QDAY 12/17/06 Verapamil Hcl (Isoptin Sr (Or Equiv)) 180 Mg Tabcr, 180 MG PO DAILY 12/17/06 Discontinued Reported Medications Lisinopril (LISINOPRIL) 20 Mg Tablet, 20 MG PO QDAY, TAB 08/27/15 Follow up Referrals: Family Practice with Deanne Mar Diet: Diabetic Activity: As Tolerated Special Instructions: Continue home oxygen. Follow up with Deanne RAE in next 5-7 days or sooner if any problems. Resume metformin on Thursday11/23/17. Copies to: DEANNE MAR Venous Thromboembolism Antithrombotics Is Pt On Any Antithrombotics?: No Problem Qualifiers (1) Vomiting: Vomiting type: unspecified Vomiting Intractability: non-intractable Nausea presence: with nausea Qualified Codes: R11.2 - Nausea with vomiting, unspecified EWA RUIZ MD Nov 21, 2017 15:06
--- NOTE | 2017-11-22 00:56 | RADIOLOGY IMAGING REPORT ---
FACILITY: [facility] [place] PATIENT NAME: William Hernandez : 1950 MR: [id number] V: [id number] EXAM DATE: ORDERING PHYSICIAN: BLU JONES TECHNOLOGIST: Location: [facility] [place], [place] Patient: William Hernandez : 1950 Visit/Account:[id number] Date of Sevice: 11/21/2017 CAROTID HISTORY: Dizziness. Passed out twice in the emergency department. COMPARISON: None. Head CT was performed for 12/02/2018. TECHNIQUE: Ultrasound images were obtained of the carotid and vertebral arteries bilaterally. Graysc angelina and color flow and doppler images were obtained. Stenosis percent is determined from velocity cri teria extrapolated from diameter data as defined by the Society of Radiologists in Ultrasound Consens us Conference Radiology 2003; 229;340-346. FINDINGS: RIGHT: There is antegrade flow within the right vertebral artery. There is mild calcified plaque at t he right carotid bifurcation and extending into the proximal internal and external carotid arteries. Peak systolic velocity CCA: 129 cm/s Peak systolic velocity ECA: 103 cm/s Peak systolic velocity carotid bulb: 77 cm/s Peak systolic velocity proximal ICA: 90 cm/s Peak systolic velocity mid ICA: 95 cm/s Peak systolic velocity distal ICA: 106 cm/s ICA/CCA ratio is 0.8. LEFT: There is antegrade flow within the left vertebral artery. There is mild calcified plaque at the left carotid bifurcation and extending to the proximal internal and external carotid arteries. Peak systolic velocity CCA: 105 cm/s Peak systolic velocity ECA: 115 cm/s Peak systolic velocity carotid bulb: 104 cm/s Peak systolic velocity proximal ICA: 69 cm/s Peak systolic velocity mid ICA: 81 cm/s Peak systolic velocity distal ICA: 93 cm/s ICA/CCA ratio is 0.9. IMPRESSION: 1. There is antegrade flow in the bilateral vertebral arteries. 2. Findings are consistent with less than 50 percent stenosis of the bilateral internal carotid arter ies. Report Dictated By: Carolee Varela at 11/22/2017 12:43 AM Report E-Signed By: Carolee Varela at 11/22/2017 12:52 AM WSN:[id number]
[2017-11-22] MEDS ORDERED: INFLUENZA VIRUS VAC 0.5 ML SYR IM ONLY ONE (20:15)
[2017-11-22] MEDS ORDERED: ASPIRIN 81 MG ENTERIC COATED PO SCH (21:00)
--- NOTE | 2017-11-23 20:38 | RADIOLOGY IMAGING REPORT ---
FACILITY: [facility] PATIENT NAME: GONZALO PALOMO : [id number] MR: [id number] V: [id number] EXAM DATE: ORDERING PHYSICIAN: EWA RUIZ TECHNOLOGIST: Aravind Albright EXAMINATION:TWO-DIMENSIONAL ECHOCARDIOGRAPH REASON:DIZZINESS 2D Measurements (normal values in centimeters) LV endLV endRV endVent.LV PostAorticLeftPercent DiastolicSystolicDiastolicSeptumWallRootAtriumShortening (3.5-5.7)(0.9-2.6)(0.6-1.1)(0.6-1.1)(2.0-3.7)(1.9-4.0)(25-35%) [id number]% STROKE VOLUME: 93ml ESTIMATED EJECTION FRACTION:64% PARASTERNAL LONG AXIS: View is very technically difficult. Mitral annular calcification is noted. It does appear to open fairly normally. Color examination of the valves reveals only a trace of mitral insufficiency in this view. PARASTERNAL SHORT AXIS: Again a very difficult 2D echocardiograph. The overall left ventricular function again appears to be normal. No specific wall motion abnormalities are noted. APICAL FOUR AND TWO CHAMBER: Again somewhat difficult echocardiograph. The overall left ventricular systolic again appears to be normal but the endocardium is still not seen all that well. Right ventricle appears to be mildly enlarged. Other chamber sizes appear to be normal. The aortic valve area was measured at 2.1cm2 with a mean pressure gradient across the valve of 15mm Hg & a dimensionless index of 0.4 suggesting a mild to borderline moderate aortic stenosis. Trace of mitral & tricuspid insufficiency was noted. The tricuspid regurgitation Vmax measured 2.01m/sec. Mitral valve area measured within normal ranges at 2.6cm2. Definity contrast was used. No wall motion abnormalities were noted. SUBCOSTAL VIEW: Really very difficult but no pericardial effusion was noted. No atrioseptal or ventriculoseptal defects were appreciated. Doppler examination of the mitral valve in diastole does reveal a normal pattern but there is a decreased medial & lateral E prime velocity & some reversal with Valsalva suggesting moderate decrease in diastolic function. Left atrial & right atrial volumes are measured within normal ranges at 26 & 18ml/m2. OVERALL IMPRESSION: 1. Somewhat technically difficult 2D echocardiograph but Definity contrast was used. The overall left ventricular systolic function is approximately 64% with no wall motion abnormalities noted. There is a Grade 2 moderate decrease in diastolic function. 2. Borderline enlargement of the right ventricle & minimal enlargement of the aortic root. 3. A trileaflet aortic valve with a mild to borderline moderate amount of aortic stenosis. The valve area was measured at 2.1cm2 but the mean pressure gradient across the valve was 15mm Hg & the dimensionless index was measured at 0.4. 4. A trace of mitral & tricuspid insufficiency is noted. The estimated right ventricular systolic pressure is within normal ranges at 31mm Hg but that does include an estimated right atrial pressure of 15mm Hg which is mildly elevated. 5. Right ventricle appears to contract normally with a TAPSE measured at 2.6. Dictated by: Alecia Hutton M.D. on 11/21/2017 at 21:28 Transcribed by: SANDRITA on 11/23/2017 at 9:04 Approved by: Alecia Hutton M.D. on 11/23/2017 at 20:37 [facility]
== END 2017-11-21 17:08 | disposition home or self-care (01) ==
LOC: ER 14:10 → INTOOBSV 20:05 → MED 20:05
PROVIDERS: ADMIT Internal Medicine; ATTEND Internal Medicine
DX: E11.9 Type 2 diabetes mellitus without complications (principal); R11.10 Vomiting, unspecified; R42 Dizziness and giddiness; I10 Essential (primary) hypertension; E78.5 Hyperlipidemia, unspecified; G83.10 Monoplegia of lower limb affecting unspecified side
CPT/HCPCS: 36415; 36416; 70450; 70551; 71045; 71260; 74177; 81001; 82948; 84484; 85025; 87088; 93005; 93880; 99285; A9270; C8929; G0378; J1650; J1815; J2405; J2550; J2765; J3360; J7030; Q9957; Q9967; 82040; 82247; 82310; 82374; 82435; 82565; 82947; 84075; 84132; 84155; 84295; 84450; 84460; 84520

== ENCOUNTER → 2017-11-20 | Outpatient (CLI) | payer MEDICARE ==
[~2017-11-20] MED LIST: ALL300 PO; ASPI81TA86 PO; ATOR20TA22 PO; CHOL500045 PO; HCTZ25 PO; LISI20TA29 PO; LOSA100T67 PO; METF-410 PO; MULT1TAB64 PO; OMEG-96 PO; VERS180 PO
[2017-11-21 12:10] VITALS: BMI 66.2
== END ==
LOC: AMB 13:45
PROVIDERS: ATTEND Nurse Practitioner
DX: R53.1 Weakness (principal); R11.0 Nausea; R19.7 Diarrhea, unspecified; E11.9 Type 2 diabetes mellitus without complications; R00.1 Bradycardia, unspecified
CPT/HCPCS: A0425; A0427

== ENCOUNTER → 2018-12-08 | Outpatient (REF) | payer MEDICARE ==
[2017-11-21 12:10] VITALS: BMI 66.2
[~2018-12-08] MED LIST changes: +ASPI81TA86 PO; +ATOR20TA22 PO; +LOSA100T75 PO; -METF-410 PO; +METF-450 PO
== END ==
LOC: ZZSENDIN 16:00
PROVIDERS: ATTEND Urology
DX: N39.0 Urinary tract infection, site not specified (principal); B96.89 Other specified bacterial agents as the cause of diseases classified elsewhere; R33.9 Retention of urine, unspecified
CPT/HCPCS: 81001; 87077; 87088; 87186

== ENCOUNTER → 2018-12-13 | Outpatient (CLI) | payer MEDICARE ==
[2017-11-21 12:10] VITALS: BMI 66.2
--- NOTE | 2018-12-13 16:47 | RADIOLOGY IMAGING REPORT ---
[place] [facility] [place] NAME: William Hernandez : 1950 MR: [id number] V: [id number] EXAM DATE: ORDERING PHYSICIAN: ABBIE GARRETT TECHNOLOGIST: Location: [facility] Patient: William Hernandez : 1950 Visit/Account:[id number] Date of Sevice: 12/13/2018 KIDNEYS EXAMINATION: Renal ultrasound. History: UTIs with two different bacteria COMPARISON STUDIES: CT chest abdomen and pelvis November 20, 2017 FINDINGS: Kidneys: Right kidney- 14.2 x 6.3 x 7.1 cm Left kidney- 13.9 x 6.7 x 5.5 cm Uniform and symmetric blood flow in each kidney by Doppler ultrasound. Hydronephrosis: none 6.2 cm cyst projects from the lower pole of the right kidney. Resistive index on the right 0.72 and on the left 0.69 Bladder: Bilateral ureteral jets are present. Prevoid bladder volume 592 mL. The patient could not void for post void residual Abdominal aorta and IVC: Aorta and IVC are patent by Doppler ultrasound. IMPRESSION: 6.2 cm lower pole right renal cyst The prevoid bladder volume was 592 mL. The patient could not void for post void residual Report Dictated By: Katy Major MD at 12/13/2018 4:40 PM Report E-Signed By: Katy Major MD at 12/13/2018 4:42 PM WSN:[id number]
== END ==
LOC: US 02:37
PROVIDERS: ATTEND Urology
DX: N28.1 Cyst of kidney, acquired (principal)
CPT/HCPCS: 76705; 81001

== ENCOUNTER → 2019-03-17 | Outpatient (CLI) | payer MEDICARE ==
[2017-11-21 12:10] VITALS: BMI 66.2
--- NOTE | 2019-03-17 14:44 | RADIOLOGY IMAGING REPORT ---
FACILITY: [facility] PATIENT NAME: William Hernandez : 1950 MR: [id number] V: [id number] EXAM DATE: ORDERING PHYSICIAN: SERGIO DELONG TECHNOLOGIST: Location: [facility] Patient: William Hernandez : 1950 Visit/Account:[id number] Date of Sevice: 03/17/2019 EXAMINATION: CT head without IV contrast HISTORY: Dizziness. TECHNIQUE: Axial CT images of the head were obtained from the vertex to the skull base without IV c ontrast, with coronal and sagittal 2D reconstructed images. One of the following dose optimization techniques was utilized in the performance of this exam: Autom ated exposure control; adjustment of the mA and/or kV according to the patient's size; or use of an i terative reconstruction technique. Specific details can be referenced in the facility's radiology C T exam operational policy. COMPARISON: 11/20/2017. FINDINGS: There is mild age-appropriate parenchymal volume loss, with mild patchy low attenuation in the deep w glen matter compatible with chronic small vessel ischemic change. Intracranial vascular calcification s. No CT evidence of intracranial hemorrhage, mass lesion, or acute infarct. No midline shift or extra-a xial fluid collections. Yeager-white differentiation is maintained. The calvarium is intact. The partially visualized paranasal sinuses and mastoid air cells are unopaci fied. IMPRESSION: No CT evidence of acute intracranial pathology. Stable exam. Report Dictated By: Tru Hernandez MD at 03/17/2019 2:31 PM Report E-Signed By: Tru Hernandez MD at 03/17/2019 2:35 PM WSN:[id number]
== END ==
LOC: CT 13:51
PROVIDERS: ATTEND Nurse Practitioner Family
DX: R42 Dizziness and giddiness (principal)
CPT/HCPCS: 70450